=== PATIENT | male | born 1940 ===

== ENCOUNTER 2017-03-21 13:16 | Emergency (ER) | payer MEDICARE ==
[~2017-03-21] VITALS: Ht 190.5 cm; Wt 84.0 kg
[2017-03-21 13:42] VITALS: BP 124/91; PULSE 150; RESP 18; TEMP 97.8; O2SAT 92
[2017-03-21] MEDS ORDERED: DILTIAZEM HCL 25 MG/5 ML VIAL IV ONE ×2 (13:45→14:00)
[2017-03-21] MEDS ORDERED: SODIUM CHLORID 0.9% 500 ML INJ 500 ML IV ONE (13:45)
[2017-03-21] MEDS ORDERED: SODIUM CHLORIDE 0.9% FLUSH 10 ML FLUSH IVF PRN (13:45)
[2017-03-21] MEDS ORDERED: ASPIRIN 81 MG CHEW TAB PO ONE (13:45)
[2017-03-21 13:46] VITALS: O2SAT 94
--- NOTE | 2017-03-21 13:50 | PD ---
HPI Chief Complaint: Cardiac Complaint Time Seen by Provider: 13:27 Travel History International Travel<30 days: No Contact w/Intl Traveler<30days: No Traveled to known affect area: No History of Present Illness HPI The patient is a 76-year-old male who presents to the emergency department via private vehicle from his instructor pilot office, Dr. Das. The patient states he went to see his instructor pilot earlier today he noted he was in May narrow complex tachycardia with a rate of approximately 150 that he was unable to break with vagal maneuvers in the office. The patient denies any history of atrial fibrillation or atrial flutter. The patient states his blood pressures recently been elevated and he had mild exam IV prior to going to the physician's office because he thought he might be started on medication. The patient states he has to attend his brother's later today and is unable to be admitted to the hospital. He does state he has had a previous nuclear medicine stress test and echocardiogram performed at his instructor pilot office. He does have a history of hiatal hernia and takes [id number] medications. He denies any acute chest pain, shortness breath, nausea, vomiting, diaphoresis, lightheadedness, or dizziness. He does note the palpitations but denies any other symptoms. PFSH Past Medical History Narrative Medical Hiatal hernia ?: Not Past Surgical History Narrative Surgical Tonsillectomy, eye surgery Social History Tobacco Use: No Allergies-Medications (Allergen,Severity, Reaction): Coded Allergies: No Known Allergies (Unverified , 03/21/17) Reported Meds & Prescriptions Reported Meds & Active Scripts Active Reported Omeprazole 20 Mg Tab 20 Mg PO DAILY Review of Systems Except as stated in HPI: all other systems reviewed are Neg HENT: No: Vertigo, Lightheadedness Cardiovascular: Positive: Palpitations, Tachycardia, No: Chest Pain or Discomfort, Irregular Rhythm, Diaphoresis, Dyspnea on exertion Respiratory: No: Shortness of Breath Gastrointestinal: No: Nausea, Vomiting, Abdominal Pain Musculoskeletal: No: Weakness Neurologic: No: Dizziness Physical Exam Narrative GENERAL: Awake, alert, pleasant 76-year-old male who appears his stated age and is in no acute respiratory distress. SKIN: Focused skin assessment warm/dry. HEAD: Atraumatic. Normocephalic. EYES: No injection or drainage. ENT: No nasal bleeding or discharge. Mucous membranes pink and moist. NECK: Trachea midline. No JVD. CARDIOVASCULAR: Regular, tachycardic with a heart rate of 155. RESPIRATORY: No accessory muscle use. Clear to auscultation. Breath sounds equal bilaterally. GASTROINTESTINAL: Abdomen soft, non-tender, nondistended. MUSCULOSKELETAL: No obvious deformities. No clubbing. No cyanosis. No edema. NEUROLOGICAL: Awake and alert. No obvious cranial nerve deficits. Motor grossly within normal limits. Normal speech. PSYCHIATRIC: Appropriate mood and affect; insight and judgment normal. Data Data Last Documented VS Vital Signs Date Time Temp Pulse Resp B/P Pulse Ox O2 Delivery O2 Flow Rate FiO2 03/21/17 13:52 124/91 117/77 03/21/17 13:46 150 03/21/17 13:46 94 03/21/17 13:42 97.8 18 Orders Electrocardiogram (03/21/17 13:33) Ckmb (Isoenzyme) Profile (03/21/17 13:33) Complete Blood Count With Diff (03/21/17 13:33) Comprehensive Metabolic Panel (03/21/17 13:33) Magnesium (Mg) (03/21/17 13:33) Prothrombin Time / Inr (Pt) (03/21/17 13:33) Act Partial Throm Time (Ptt) (03/21/17 13:33) Troponin I (03/21/17 13:33) Ecg Monitoring (03/21/17 13:33) Bilateral Bp Monitoring (03/21/17 13:33) Iv Access Insert/Monitor (03/21/17 13:33) Oximetry (03/21/17 13:33) Oxygen Administration (03/21/17 13:33) Aspirin Chew (Aspirin Chew) (03/21/17 13:45) Sodium Chloride 0.9% Flush (Ns Flush) (03/21/17 13:45) Sodium Chlorid 0.9% 500 Ml Inj (Ns 500 M (03/21/17 13:45) Diltiazem Inj (Cardizem Inj) (03/21/17 13:45) Diltiazem Inj (Cardizem Inj) (03/21/17 14:00) CKMB (03/21/17 13:29) CKMB% (03/21/17 13:29) Metoprolol Succinate Er (Toprol Xl) (03/21/17 14:30) Apixaban (Eliquis) (03/21/17 14:30) Labs Laboratory Tests Test 03/21/17 13:29 White Blood Count 10.7 TH/MM3 Red Blood Count 6.00 MIL/MM3 Hemoglobin 17.7 GM/DL Hematocrit 51.5 % Mean Corpuscular Volume 85.9 FL Mean Corpuscular Hemoglobin 29.6 PG Mean Corpuscular Hemoglobin 34.4 % Concent Red Cell Distribution Width 12.6 % Platelet Count 254 TH/MM3 Mean Platelet Volume 7.8 FL Neutrophils (%) (Auto) 61.3 % Lymphocytes (%) (Auto) 29.4 % Monocytes (%) (Auto) 7.8 % Eosinophils (%) (Auto) 1.3 % Basophils (%) (Auto) 0.2 % Neutrophils # (Auto) 6.7 TH/MM3 Lymphocytes # (Auto) 3.1 TH/MM3 Monocytes # (Auto) 0.8 TH/MM3 Eosinophils # (Auto) 0.1 TH/MM3 Basophils # (Auto) 0.0 TH/MM3 CBC Comment DIFF FINAL Differential Comment Prothrombin Time 10.7 SEC Prothromb Time International 1.0 RATIO Ratio Activated Partial 31.4 SEC Thromboplast Time Sodium Level 139 MEQ/L Potassium Level 3.9 MEQ/L Chloride Level 103 MEQ/L Carbon Dioxide Level 27.4 MEQ/L Anion Gap 9 MEQ/L Blood Urea Nitrogen 14 MG/DL Creatinine 0.97 MG/DL Estimat Glomerular Filtration 75 ML/MIN Rate Random Glucose 111 MG/DL Calcium Level 9.4 MG/DL Magnesium Level 2.0 MG/DL Total Bilirubin 0.7 MG/DL Aspartate Amino Transf 29 U/L (AST/SGOT) Alanine Aminotransferase 30 U/L (ALT/SGPT) Alkaline Phosphatase 84 U/L Total Creatine Kinase 105 U/L Creatine Kinase MB 2.9 NG/ML Troponin I LESS THAN 0.02 NG/ML Total Protein 8.2 GM/DL Albumin 4.2 GM/DL [facility] Medical Decision Making Medical Screen Exam Complete: Yes Emergency Medical Condition: Yes Medical Record Reviewed: Yes Interpretation(s) EKG reveals narrow complex tachycardia with a rate of 155, appears to be atrial flutter 2:1 block. EKG #2 reveals sinus rhythm with occasional supraventricular premature complexes. Laboratory Tests Test 03/21/17 13:29 White Blood Count 10.7 TH/MM3 Red Blood Count 6.00 MIL/MM3 Hemoglobin 17.7 GM/DL Hematocrit 51.5 % Mean Corpuscular Volume 85.9 FL Mean Corpuscular Hemoglobin 29.6 PG Mean Corpuscular Hemoglobin 34.4 % Concent Red Cell Distribution Width 12.6 % Platelet Count 254 TH/MM3 Mean Platelet Volume 7.8 FL Neutrophils (%) (Auto) 61.3 % Lymphocytes (%) (Auto) 29.4 % Monocytes (%) (Auto) 7.8 % Eosinophils (%) (Auto) 1.3 % Basophils (%) (Auto) 0.2 % Neutrophils # (Auto) 6.7 TH/MM3 Lymphocytes # (Auto) 3.1 TH/MM3 Monocytes # (Auto) 0.8 TH/MM3 Eosinophils # (Auto) 0.1 TH/MM3 Basophils # (Auto) 0.0 TH/MM3 CBC Comment DIFF FINAL Differential Comment Prothrombin Time 10.7 SEC Prothromb Time International 1.0 RATIO Ratio Activated Partial 31.4 SEC Thromboplast Time Sodium Level 139 MEQ/L Potassium Level 3.9 MEQ/L Chloride Level 103 MEQ/L Carbon Dioxide Level 27.4 MEQ/L Anion Gap 9 MEQ/L Blood Urea Nitrogen 14 MG/DL Creatinine 0.97 MG/DL Estimat Glomerular Filtration 75 ML/MIN Rate Random Glucose 111 MG/DL Calcium Level 9.4 MG/DL Magnesium Level 2.0 MG/DL Total Bilirubin 0.7 MG/DL Aspartate Amino Transf 29 U/L (AST/SGOT) Alanine Aminotransferase 30 U/L (ALT/SGPT) Alkaline Phosphatase 84 U/L Total Creatine Kinase 105 U/L Troponin I LESS THAN 0.02 NG/ML Total Protein 8.2 GM/DL Albumin 4.2 GM/DL Differential Diagnosis Differential diagnosis includes atrial flutter, atrial fibrillation, SVT, sinus tachycardia, electrolyte abnormality, hyperthyroidism, pulmonary embolism, dehydration, symptomatic anemia. Laboratory Tests Test 03/21/17 13:29 White Blood Count 10.7 TH/MM3 Red Blood Count 6.00 MIL/MM3 Hemoglobin 17.7 GM/DL Hematocrit 51.5 % Mean Corpuscular Volume 85.9 FL Mean Corpuscular Hemoglobin 29.6 PG Mean Corpuscular Hemoglobin 34.4 % Concent Red Cell Distribution Width 12.6 % Platelet Count 254 TH/MM3 Mean Platelet Volume 7.8 FL Neutrophils (%) (Auto) 61.3 % Lymphocytes (%) (Auto) 29.4 % Monocytes (%) (Auto) 7.8 % Eosinophils (%) (Auto) 1.3 % Basophils (%) (Auto) 0.2 % Neutrophils # (Auto) 6.7 TH/MM3 Lymphocytes # (Auto) 3.1 TH/MM3 Monocytes # (Auto) 0.8 TH/MM3 Eosinophils # (Auto) 0.1 TH/MM3 Basophils # (Auto) 0.0 TH/MM3 CBC Comment DIFF FINAL Differential Comment Prothrombin Time 10.7 SEC Prothromb Time International 1.0 RATIO Ratio Activated Partial 31.4 SEC Thromboplast Time Sodium Level 139 MEQ/L Potassium Level 3.9 MEQ/L Chloride Level 103 MEQ/L Carbon Dioxide Level 27.4 MEQ/L Anion Gap 9 MEQ/L Blood Urea Nitrogen 14 MG/DL Creatinine 0.97 MG/DL Estimat Glomerular Filtration 75 ML/MIN Rate Random Glucose 111 MG/DL Calcium Level 9.4 MG/DL Magnesium Level 2.0 MG/DL Total Bilirubin 0.7 MG/DL Aspartate Amino Transf 29 U/L (AST/SGOT) Alanine Aminotransferase 30 U/L (ALT/SGPT) Alkaline Phosphatase 84 U/L Total Creatine Kinase 105 U/L Creatine Kinase MB 2.9 NG/ML Troponin I LESS THAN 0.02 NG/ML Total Protein 8.2 GM/DL Albumin 4.2 GM/DL Narrative Course IV was established, labs are drawn and sent, and the patient was placed on cardiac telemetry monitoring and continuous pulse oximetry monitoring. EKG was ordered and interpreted. The patient was administered Cardizem 15 mg intravenously and normal saline 500 cc. The patient also received aspirin 162 mg orally. Labs are unremarkable. The patient was administered a second dose of Cardizem 20 mg intravenously for heart rate in the 130s, he then converted to a sinus rhythm with a rate in the 80s. The patient stated he has to leave the hospital so he can attend his brother's . He does not want admission despite new onset atrial fibrillation. Therefore, a call was placed to the patient's instructor pilot, Dr. Das, 2:12 PM. I discussed the patient with Dr. Das at 2:20 PM who recommends Toprol-XL 50 mg daily and Eliquis 5 mg twice a day. I had a discussion with the patient is agreeable to these medications, he was administered his first dose of Toprol and Eliquis in the emergency department. He is advised to start his new medications tomorrow at home. He is also advised to follow-up with Dr. Das. Patient is comfortable with this plan of care and disposition. Diagnosis Primary Impression: Atrial flutter with rapid ventricular response Patient Instructions: General Instructions Additional Instructions: Take a baby aspirin daily. Medication as directed. Follow-up with your instructor pilot. Return if symptoms worsen or progress. Med/Other Pt SpecificInfo: Prescription(s) given Scripts Metoprolol Succinate ER 24 HR (Toprol XL)50 Mg Tab50 Mg PO DAILY #30 TAB Ref 0 Prov:Kelby Fernando MD 03/21/17 Apixaban (Eliquis)5 Mg Tab5 Mg PO BID #60 TAB Ref 0 Prov:Kelby Fernando MD 03/21/17 Disposition: 01 DISCHARGE HOME Condition: Stable Kelby Fernando MD Mar 21, 2017 13:50
[2017-03-21] MEDS ORDERED: OMEP20TA PO (13:51)
[2017-03-21 13:52] VITALS: BP_SYST 117; BP_SYST 124; BP_DIAS 77; BP_DIAS 91
[2017-03-21 13:53] LABS: AUTOMATED NEUTROPHIL # 6.7 TH/MM3 (1.8-7.7); BASOPHIL % 0.2 % (0.0-2.0); EOSINOPHIL # 0.1 TH/MM3 (0-0.4); EOSINOPHIL % 1.3 % (0.0-4.0); HEMATOCRIT 51.5 % (39.0-51.0); HEMO FLAGS DIFF FINAL; LYMPH % 29.4 % (9.0-44.0); LYMPHOCYTE # 3.1 TH/MM3 (1.0-4.8); MEAN CELL VOLUME 85.9 FL (80.0-100.0); MEAN CORPUSCULAR HEMOGLOBIN 29.6 PG (27.0-34.0); MEAN CORPUSCULAR HGB CONC 34.4 % (32.0-36.0); MONO % 7.8 % (0.0-8.0); NEUT % 61.3 % (16.0-70.0); PLATELET COUNT 254 TH/MM3 (150-450); RED CELL DISTRIBUTION WIDTH 12.6 % (11.6-17.2); WHITE BLOOD COUNT 10.7 TH/MM3 (4.0-11.0)
[2017-03-21 13:58] LABS: CHLORIDE 103 MEQ/L (98-107); POTASSIUM 3.9 MEQ/L (3.5-5.1); SODIUM (NA) 139 MEQ/L (136-145)
[2017-03-21 14:02] LABS: ANION GAP 9 MEQ/L (5-15); BICARBONATE 27.4 MEQ/L (21.0-32.0); BLOOD UREA NITROGEN 14 MG/DL (7-18)
[2017-03-21 14:03] LABS: APTT (PATIENT) 31.4 SEC (24.3-30.1); PROTHROMBIN TIME - PATIENT 10.7 SEC (9.8-11.6)
[2017-03-21 14:05] LABS: ALT (GPT) 30 U/L (12-78); AST (GOT) 29 U/L (15-37); GLOMERULAR FILTRATION RATE 75 ML/MIN (>89)
[2017-03-21 14:07] LABS: TOTAL BILIRUBIN ADULT 0.7 MG/DL (0.2-1.0)
[2017-03-21 14:08] LABS: ALKALINE PHOSPHATASE 84 U/L (45-117); CREATINE KINASE 105 U/L (39-308)
[2017-03-21 14:20] LABS: CKMB 2.9 NG/ML (0.5-3.6)
[2017-03-21] MEDS ORDERED: TOPR50TA PO (14:27)
[2017-03-21] MEDS ORDERED: APIX5TAB PO (14:27)
[2017-03-21] MEDS ORDERED: METOPROLOL SUCCINATE 50 MG EXTENDED RELEASE TAB PO ONE (14:30)
[2017-03-21] MEDS ORDERED: APIXABAN 5 MG TABLET PO ONE (14:30)
[2017-03-21 14:45] VITALS: BP 119/74
--- NOTE | 2017-03-22 12:00 | EKG ---
Date Performed: 03/21/2017 Time Performed: 14:07:53 PTAGE: 76 years EKG: Sinus rhythm WITH OCCASIONAL SUPRAVENTRICULAR PREMATURE COMPLEXES BORDERLINE ECG PREVIOUS TRACING : 03/21/2017 13.24 Supraventricular tachycardia has resolved from the prior tr acing. DOCTOR: Ronald Rincon Interpretating Date/Time 03/22/2017 11:59:18
--- NOTE | 2017-03-22 12:00 | EKG ---
Date Performed: 03/21/2017 Time Performed: 13:24:09 PTAGE: 76 years EKG: Supraventricular tachycardia MODERATE INTRAVENTRICULAR CONDUCTION DELAY BORDERLINE ECG NO PREVIOUS TRACING Supraventricular tachycardia is new from the prior tracing DOCTOR: Ronald Rincon Interpretating Date/Time 03/22/2017 11:59:42
== END 2017-03-21 14:45 | disposition home or self-care (01) ==
LOC: PHED 13:16
DX: I48.92 Unspecified atrial flutter (principal); R94.31 Abnormal electrocardiogram [ECG] [EKG]; Z87.39 Personal history of other diseases of the musculoskeletal system and connective tissue
CPT/HCPCS: 80053; 82550; 82552; 83735; 84484; 85025; 85610; 85730; 93005; 96361; 96374; 99284; J7040